=== PATIENT | male | born 1970 | race Caucasian/White ===

== ENCOUNTER 2018-01-31 12:11 | Emergency (ER) | payer BC ==
[2018-01-31 12:20] VITALS: BP 157/108
[2018-01-31] MEDS ORDERED: Acetaminophen/oxyCODONE 325-5 MG Tab PO ONE (12:31)
--- NOTE | 2018-01-31 12:32 | EDM.PDOC ---
ED HPI GENERAL MEDICAL PROBLEM - General Chief Complaint: Lower Extremity Injury/Pain Stated Complaint: RIGHT LEG INJURY Time Seen by Provider: 01/31/18 12:27 Source of Information: Reports: Patient History Limitations: Reports: No Limitations - History of Present Illness INITIAL COMMENTS - FREE TEXT/NARRATIVE: 48-year-old male presents for evaluation and treatment of injury to the right foot and ankle. Occurred about 20 minutes prior to arrival in the ER. Patient was carrying some wood. Reports he stepped off a curb and rolled his right ankle. He is primarily complaining of pain to the right lateral foot. Unable to walk on it. No treatment prior to arrival in the ER. No numbness or tingling. No previous trauma to the right foot. Onset: Today, Sudden Location: Reports: Lower Extremity, Right Right Feet Pain Score (Numeric/FACES): 10 - Related Data Allergies Allergy/AdvReac Type Severity Reaction Status Date / Time No Known Allergies Allergy Verified 12/08/14 10:21 Home Meds: Home Meds PARoxetine [Paxil] 10 mg PO DAILY 12/08/14 [History] Allopurinol [Zyloprim] 300 mg PO DAILY 05/17/16 [History] Rosuvastatin Calcium [Crestor] 40 mg PO DAILY 01/31/18 [History] Past Medical History Cardiovascular History: Reports: High Cholesterol, Hypertension Musculoskeletal History: Reports: Gout - Past Surgical History HEENT Surgical History: Reports: Tonsillectomy Other HEENT Surgeries/Procedures: Septoplasty Musculoskeletal Surgical History: Reports: Arthroscopic Knee Social & Family History - Tobacco Use Smoking Status *Q: Never Smoker - Caffeine Use Caffeine Use: Reports: Coffee, Soda, Tea - Recreational Drug Use Recreational Drug Use: No Review of Systems - Review of Systems Review Of Systems: See Below Musculoskeletal: Reports: Foot Pain (right lateral foot) Skin: Reports: Lumps (right lateral foot) Neurological: Reports: Difficulty Walking (due to right foot pain). Denies: Numbness, Tingling ED EXAM, GENERAL - Physical Exam Exam: See Below Exam Limited By: No Limitations General Appearance: Alert, WD/WN, No Apparent Distress Respiratory/Chest: No Respiratory Distress Cardiovascular: Normal Peripheral Pulses, Regular Rate, Rhythm Peripheral Pulses: 2+: Posterior Tibial (L), Posterior Tibial (R), Dorsalis Pedis (L), Dorsalis Pedis (R) Extremities: Other (tenderness and deformity to the right foto 5th metatarsal; no tenderness to the medial or lateral right malleolus; reports good sensation to liht touch, ableto wiggle toes) Neurological: Alert, Oriented, Normal Cognition Psychiatric: Normal Affect, Normal Mood Skin Exam: Warm, Dry, Normal Color ED TRAUMA EXTREMITY PROCEDURES - Splinting Right Lower Extremity Splint Site: left foot Pre-Procedure NV Status: Normal Post-Procedure NV Status: Normal Splint Material: Other (orthoglass) Splint Design: Posterior Applied & Form Fitted By: Provider, Nurse Provider Post-Splint Application NV Check: NV Status Normal, Good Position Complications: No Course - Vital Signs Last Recorded V/S: Last Vital Signs Temp 97.9 F 01/31/18 12:19 Pulse 82 01/31/18 12:19 Resp 20 01/31/18 12:19 BP 157/108 H 01/31/18 12:19 Pulse Ox 99 01/31/18 12:19 - Orders/Labs/Meds Orders: Active Orders 24 hr Category Date Time Status Ankle Min 3V Rt [CR] Stat Exams 01/31/18 12:31 Taken Foot Comp Min 3V Rt [CR] Stat Exams 01/31/18 12:31 Taken Meds: Medications Discontinued Medications Generic Name Dose Route Start Last Admin Trade Name Freq PRN Reason Stop Dose Admin Oxycodone/Acetaminophen 1 tab 01/31/18 12:31 01/31/18 12:57 Percocet 325-5 Mg PO 01/31/18 12:32 1 tab ONETIME ONE Administration - Radiology Interpretation Free Text/Narrative:: xray of the right foot and ankle shows a fracture of the right proximal 5th metatarsal. - Re-Assessments/Exams Free Text/Narrative Re-Assessment/Exam: 01/31/18 14:18 Patient splinted. Tolerated well. No complications. Discharge instructions as documented. Departure - Departure Time of Disposition: 14:19 Disposition: Home, Self-Care 01 Condition: Fair Clinical Impression: Fracture of 5th metatarsal - Discharge Information Instructions: Metatarsal Fracture Referrals: Chester Olson MD [Primary Care Provider] - Angel Conte MD [Physician] - Forms: ED Department Discharge Additional Instructions: Rx for percocoet 5-325mg tabs #20 1-2 tabs PO every 4-6 hours prn pain you were given medication the other can affect your ability to drive and operate machinery. Do not drive or operate machinery within 12 hours of taking perception narcotic pain medication. [id number] ibuprofen as needed for pain relief. Do not take more than 3200 mg ibuprofen from all sources 1 day. Do not take more than 4grams of tylenol from all sources in one day. Percocet 1-2 tabs PO every 4-6 hours prn pain. Percocet is habit-forming, take as few these as needed to control your pain. Do not drive or operate machinery within 12 hours of taking percocet. Ice the foot, even over the splint. Elevate as much as possible. Nonweightbearing and crutches. Keep splint on at all times. Keep covered with a bag or seran wrap when around water. Follow-up with orthopedics within 7-[address] Conte. Call [phone] to schedule with him. No driving with the splint or on pain medication. Please return to ER if your symptoms change or worsen. - My Orders Last 24 Hours: My Active Orders 01/31/18 12:31 Ankle Min 3V Rt [CR] Stat Foot Comp Min 3V Rt [CR] Stat - Assessment/Plan Last 24 Hours: My Active Orders 01/31/18 12:31 Ankle Min 3V Rt [CR] Stat Foot Comp Min 3V Rt [CR] Stat
--- NOTE | 2018-02-01 12:44 | CR ---
Right ankle: Four views of the right ankle were obtained. Comparison: No prior ankle study. Ankle mortise is symmetric. Fracture is identified within the base of the fifth metatarsal with slight displacement. No additional fracture or other bony abnormality is seen. Impression: 1. Slightly displaced fracture involving the base of the fifth metatarsal. 2. No additional bony abnormality is identified. Diagnostic code #3
--- NOTE | 2018-02-01 12:56 | CR ---
Right foot: Four views of the right foot were obtained. Comparison: No previous foot exam. Slightly displaced fracture involving the base of the right fifth metatarsal. Incidental unfused os navicularis is noted as a normal variant. Minimal bunion deformity is seen. No additional fracture or other bony abnormality is seen. Impression: 1. Slightly displaced fracture within the base of the fifth metatarsal. 2. Other incidental findings. Diagnostic code #3
== END 2018-01-31 14:37 | disposition home or self-care (01) ==
LOC: JD.ED 12:11
DX: S92.351A Displaced fracture of fifth metatarsal bone, right foot, initial encounter for closed fracture (principal); E78.00 Pure hypercholesterolemia, unspecified; I10 Essential (primary) hypertension; Z79.899 Other long term (current) drug therapy
CPT/HCPCS: 29515; 73610; 73630; 99283; A9270

== ENCOUNTER 2019-09-04 17:39 | Emergency (ER) | payer BC ==
[2019-09-04 18:16] VITALS: BP 157/110; PULSE 87
[2019-09-04] MEDS ORDERED: predniSONE 20 MG Tab PO ONE (18:36)
[2019-09-04] MEDS ORDERED: Ketorolac 60 MG/2 ML SDV IM ONE (18:36)
[2019-09-04] MEDS ORDERED: Acetaminophen/HYDROcodone 325-5 MG Tab PO ONE (18:36)
--- NOTE | 2019-09-04 19:11 | EDM.PDOC ---
ED HPI GENERAL MEDICAL PROBLEM - General Chief Complaint: Lower Extremity Injury/Pain Stated Complaint: RT KNEE SWOLLEN Time Seen by Provider: 09/04/19 18:22 Source of Information: Reports: Patient, RN Notes Reviewed - History of Present Illness INITIAL COMMENTS - FREE TEXT/NARRATIVE: 49-year-old male comes in with right knee pain. This started yesterday and is much worse today. 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 Have history of degenerative arthritic problems with the right knee. He states he last had a steroid injection about one year ago done relatively well up until last 2 days. Right Knee Pain Score (Numeric/FACES): 10 - Related Data Allergies Allergy/AdvReac Type Severity Reaction Status Date / Time No Known Allergies Allergy Verified 12/08/14 10:21 Home Meds: Home Meds PARoxetine [Paxil] 10 mg PO DAILY 12/08/14 [History] Allopurinol [Zyloprim] 300 mg PO DAILY 05/17/16 [History] Rosuvastatin Calcium [Crestor] 40 mg PO DAILY 01/31/18 [History] Acetaminophen/HYDROcodone [Driver 325-5 MG] 1 tab PO Q6H PRN #14 tablet 09/04/19 [Rx] Meloxicam 15 mg PO DAILY #20 tablet 09/04/19 [Rx] predniSONE [Prednisone] 50 mg PO DAILY #5 tablet 09/04/19 [Rx] Past Medical History Cardiovascular History: Reports: High Cholesterol, Hypertension Musculoskeletal History: Reports: Gout - Past Surgical History HEENT Surgical History: Reports: Tonsillectomy Other HEENT Surgeries/Procedures: Septoplasty Musculoskeletal Surgical History: Reports: Arthroscopic Knee Other Musculoskeletal Surgeries/Procedures:: needs R knee replacement, gets cortisone injections Social & Family History - Tobacco Use Smoking Status *Q: Never Smoker Second Hand Smoke Exposure: No - Caffeine Use Caffeine Use: Reports: Coffee Review of Systems - Review of Systems Review Of Systems: See Below Constitutional: Denies: Chills, Fever Mouth/Throat: Reports: No Symptoms Respiratory: Denies: Shortness of Breath Cardiovascular: Denies: Chest Pain GI/Abdominal: Denies: Abdominal Pain, Vomiting Musculoskeletal: Reports: Joint Pain (R knee) Skin: Denies: Rash, Erythema Neurological: Reports: No Symptoms ED EXAM, GENERAL - Physical Exam Exam: See Below General Appearance: Alert, Mild Distress Eye Exam: Bilateral Eye: PERRL Head: Atraumatic. No: Facial Swelling Neck: Supple Respiratory/Chest: No Respiratory Distress, Lungs Clear, Normal Breath Sounds Cardiovascular: Regular Rate, Rhythm Extremities: Other (there is tenderness of the R knee anteriorly, no swelling, visible effusion, moderate pain with motion, joint is stable). No: Joint Swelling, Increased Warmth, Redness Course - Vital Signs Last Recorded V/S: Last Vital Signs Temp 98.1 F 09/04/19 18:13 Pulse 87 09/04/19 18:13 Resp 20 09/04/19 18:13 BP 157/110 H 09/04/19 18:13 Pulse Ox 97 09/04/19 18:13 - Orders/Labs/Meds Meds: Medications Discontinued Medications Generic Name Dose Route Start Last Admin Trade Name Freq PRN Reason Stop Dose Admin Hydrocodone Bitart/Acetaminophen 1 tab 09/04/19 18:36 09/04/19 18:49 Driver 325-5 Mg PO 09/04/19 18:37 1 tab ONETIME ONE Administration Ketorolac Tromethamine 60 mg 09/04/19 18:36 09/04/19 18:50 Toradol IM 09/04/19 18:37 60 mg ONETIME ONE Administration Prednisone 40 mg 09/04/19 18:36 09/04/19 18:50 Prednisone PO 09/04/19 18:37 40 mg ONETIME ONE Administration - Re-Assessments/Exams Free Text/Narrative Re-Assessment/Exam: 09/11/19 20:12 X rays were not clinically indicated at time of exam. Departure - Departure Time of Disposition: 19:11 Disposition: Home, Self-Care 01 Condition: Fair Clinical Impression: Knee pain, right - Discharge Information Prescriptions: Acetaminophen/HYDROcodone [Driver 325-5 MG] 1 tab PO Q6H PRN #14 tablet PRN Reason: Pain Meloxicam 15 mg PO DAILY #20 tablet predniSONE [Prednisone] 50 mg PO DAILY #5 tablet Instructions: Knee Pain, Adult Referrals: Chester Olson MD [Primary Care Provider] - Forms: ED Department Discharge Additional Instructions: Rest mean, use knee immobilizer as needed, meloxicam 15 mg daily, and 50 mg every morning for the next 4-5 days, you may take Tylenol in addition up to 3 times daily for extra pain relief or hydrocodone when not working or driving instead of the Tylenol. Prescriptions for these medications have been sent to [facility]. Do not take Tylenol and hydrocodone at the same time. You can also alternate ice and heat as needed. See Dr. Conte in 1-2 weeks, call [phone] for appointment in a.m. Sepsis Event Note - Evaluation Sepsis Screening Result: No Definite Risk - Focused Exam Date Exam was Performed: 09/11/19 Time Exam was Performed: 20:10
== END 2019-09-04 19:25 | disposition home or self-care (01) ==
LOC: JD.ED 17:39
DX: M25.561 Pain in right knee (principal); I10 Essential (primary) hypertension; E78.00 Pure hypercholesterolemia, unspecified; M10.9 Gout, unspecified; Z79.899 Other long term (current) drug therapy
CPT/HCPCS: 96372; 99283; A9270; J1885

== ENCOUNTER 2020-04-14 08:30 | Emergency (ER) | payer BC ==
[2020-04-14 08:39] VITALS: BP 140/103; PULSE 77
--- NOTE | 2020-04-14 09:05 | EDM.PDOC ---
ED HPI GENERAL MEDICAL PROBLEM - General Chief Complaint: Back Pain or Injury Stated Complaint: RIGHT BACK PAIN Time Seen by Provider: 04/14/20 09:00 Source of Information: Reports: Patient History Limitations: Reports: No Limitations - History of Present Illness INITIAL COMMENTS - FREE TEXT/NARRATIVE: 50-year-old male presents to the ED with diffuse mid right low back pain more or less constant for the last 2 weeks. No known injuries. Worsened by twisting movements bending over and sometimes coughing or deep breathing. Has been to the chiropractor with manipulation which feels better for a short period of time. Pain became more intense over the last 48 hours. No relief with sitting in the hot tub last night in fact the jets against the area made it hurt worse. Denies cough or sputum production. He is right-hand dominant. Pain is confined to the right mid back in the distribution of the latissimus dorsi and paraspinal musculature. Onset: Gradual Onset Date: 03/30/20 Duration: Day(s):, Constant, Getting Worse, Intermittent (Intermittently gets worse i.e. some days are worse than others.) Location: Reports: Back (Right mid back) Quality: Reports: Ache, Burning, Throbbing Severity: Moderate Improves with: Reports: Other Worsens with: Reports: Movement (Sometimes even rest no position is comfortable. And by certain movements like twisting turning movements bending over or coughing or deep breathing.) Context: Denies: Activity, Exercise, Lifting, Sick Contact, Trauma, Other Associated Symptoms: Reports: Malaise. Denies: No Other Symptoms, Confusion, Chest Pain, Cough, cough w sputum, Diaphoresis, Fever/Chills, Headaches, Loss of Appetite, Nausea/Vomiting, Rash, Seizure, Shortness of Breath, Syncope, Weakness Treatments [employer]: Reports: Acetaminophen, NSAIDS Right Back Pain Score (Numeric/FACES): 1 - Related Data Allergies Allergy/AdvReac Type Severity Reaction Status Date / Time No Known Allergies Allergy Verified 04/14/20 08:39 Home Meds: Home Meds PARoxetine [Paxil] 10 mg PO DAILY 12/08/14 [History] Allopurinol [Zyloprim] 300 mg PO DAILY PRN 05/17/16 [History] Rosuvastatin Calcium [Crestor] 40 mg PO DAILY 01/31/18 [History] Cyclobenzaprine [Flexeril] 10 mg PO BEDTIME #6 tab 04/14/20 [Rx] Diclofenac Sodium [Voltaren] 75 mg PO BIDMEALS #16 tab.cr 04/14/20 [Rx] Hydrocodone/Acetaminophen [[place] 5-325 Tablet] 1 each PO Q6H PRN #14 tablet 04/14/20 [Rx] Levothyroxine [Synthroid] 100 mcg PO DAILY 04/14/20 [History] allopurinoL [Zyloprim] 100 mg PO DAILY 04/14/20 [History] predniSONE [Prednisone] 20 mg PO BID #12 tablet 04/14/20 [Rx] Past Medical History Cardiovascular History: Reports: High Cholesterol, Hypertension Musculoskeletal History: Reports: Gout Endocrine/Metabolic History: Reports: Hypothyroidism (Levothyroxine.) - Infectious Disease History Infectious Disease History: Reports: None - Past Surgical History HEENT Surgical History: Reports: Tonsillectomy Other HEENT Surgeries/Procedures: Septoplasty Musculoskeletal Surgical History: Reports: Arthroscopic Knee Other Musculoskeletal Surgeries/Procedures:: needs R knee replacement, gets cortisone injections Social & Family History - Tobacco Use Smoking Status *Q: Never Smoker Second Hand Smoke Exposure: No - Caffeine Use Caffeine Use: Reports: Coffee - Recreational Drug Use Recreational Drug Use: No - Living Situation & Occupation Living situation: Reports: Occupation: Employed ED ROS GENERAL - Review of Systems Review Of Systems: See Below Constitutional: Reports: Fatigue. Denies: Fever, Chills HEENT: Reports: Glasses Respiratory: Reports: No Symptoms Cardiovascular: Reports: No Symptoms, Other (Known high cholesterol.) Endocrine: Reports: Fatigue GI/Abdominal: Reports: No Symptoms : Reports: No Symptoms Musculoskeletal: Reports: Back Pain (Right mid low back pain which is constant and worsened by certain movements.) Skin: Reports: No Symptoms Neurological: Reports: No Symptoms Psychiatric: Reports: No Symptoms Hematologic/Lymphatic: Reports: No Symptoms Immunologic: Reports: No Symptoms ED EXAM, UPPER BACK/NECK PAIN - Physical Exam Exam: See Below Exam Limited By: No Limitations General Appearance: Alert, WD/WN, Mild Distress, Other (Temperature is 36.1 with a heart rate of 77. Respiratory to 16 with O2 sats of 95% room air BP mildly elevated 1 4103.) Eye Exam: Bilateral Eye: Normal Fundi, PERRL Cardiovascular/Respiratory: Regular Rate, Rhythm, No M/R/G, Normal Peripheral Pulses, No JVD, No Respiratory Distress GI/Abdominal: Normal Bowel Sounds, Soft, Non-Tender, No Organomegaly, No Abnor mal Bruit, No Mass, Pelvis Stable Back Exam: Decreased Range of Motion, Muscle Spasm (Still spasm from thoracic 6 to lumbar 1 right side.), Paraspinal Tenderness (Marked paraspinal muscle tenderness overlying right rib heads from 03/04/2010.), Other (Point of maximal tenderness appears to be rib head #10.) Extremities: Normal Inspection, Normal Range of Motion, Non-Tender Neurologic: No Motor/Sensory Deficits, Alert, Normal Mood/Affect, Oriented x 3 Course - Vital Signs Last Recorded V/S: Last Vital Signs Temp 36.1 C 04/14/20 08:37 Pulse 77 04/14/20 08:37 Resp 16 04/14/20 08:37 BP 140/103 H 04/14/20 08:37 Pulse Ox 95 04/14/20 08:37 - Radiology Interpretation Free Text/Narrative:: 50-year-old male presents to the ED for evaluation of 2-week history of right low back pain. Pain is actually in his mid thoracic lower thoracic area. Paraspinal muscle spasm from thoracic 6 to lumbar 1 evident. Point of maximal tenderness appears to be rib bed #10. Certainly has marked overlying paraspinal muscle spasm. Plan CT thoracic spine to be done since he is been to chiropractor with manipulation with only minimal improvement. Pain seems to be gradually worsening. He has no history of any cancer. Lungs are clear to auscultation percussion. - Re-Assessments/Exams Free Text/Narrative Re-Assessment/Exam: 04/14/20 09:55 CT of the thoracic spine is been completed. So scattered disc space narrowing as well as scattered endplate osteophytes throughout the spine. Vertebral body heights are maintained. No fractures are identified within the thoracic spine no bony central or bony neuroforaminal stenosis is appreciated. Slight scoliosis is noted. No abnormal subluxation is appreciated no discrete disc herniation is noted. 04/14/20 10:12 I discussed the findings with the patient. Clinically I believe he has a rib head subluxation at thoracic 9 or 10 level on the right side because his current muscle spasm and pain. I would suggest follow-up with a chiropractor again next week to have these rib heads adjusted. In the meantime I will place him on anti-inflammatory Voltaren 75 mg twice daily for the next 8 days with food. Prednisone 20 mg twice daily with breakfast and supper for 6 days. Flexeril 10 mg at bedtime only x6 tablets and Percocet tablets 5/325 mg 1 tablet every 6 hours as needed for pain relief x14 tablets. Return to medical care if not markedly improved after rib head adjustment by chiropractor Departure - Departure Time of Disposition: 10:03 Disposition: Home, Self-Care 01 Condition: Fair Clinical Impression: Thoracic back pain Qualifiers: Chronicity: acute Back pain laterality: right Qualified Code(s): M54.6 - Pain in thoracic spine - Discharge Information *PRESCRIPTION DRUG MONITORING PROGRAM REVIEWED*: Not Applicable *COPY OF PRESCRIPTION DRUG MONITORING REPORT IN PATIENT ACMDEN: Not Applicable Prescriptions: Cyclobenzaprine [Flexeril] 10 mg PO BEDTIME #6 tab Hydrocodone/Acetaminophen [[place] 5-325 Tablet] 1 each PO Q6H PRN #14 tablet PRN Reason: back pain predniSONE [Prednisone] 20 mg PO BID #12 tablet Diclofenac Sodium [Voltaren] 75 mg PO BIDMEALS #16 tab.cr Referrals: Chester Olson MD [Primary Care Provider] - Forms: ED Department Discharge Additional Instructions: Evaluation in the emergency room today in regards to diffuse right sided back pain for the better part of 2 weeks. Gradually seems to be worsening. Examination reveals significant. Paraspinal muscle spasm on the right side from mid upper back at thoracic 6 down to the lumbar 1 level. Maximal point of tenderness appears to be rib heads 9 and 10 on the right side. There is no paraspinal muscle spasm on the left side. A CT of your thoracic spine was done due to gradually worsening pain over the last 2 weeks to rule out anything sinister. There is some mild associated degenerative disc disease and arthritic changes throughout the thoracic spine but nothing that is impinging a nerve root or invading the bone to cause pain. I suspect there is a rib head subluxation at right side thoracic 9 or 10 level. Suggest treatment with Deltasone 20 mg twice daily with breakfast and supper for 6 days. Take 1 when you get 1 this morning and in the next 1 bedtime with a little food in your stomach. Anti- inflammatory is to be Voltaren 75 mg twice daily usually again with breakfast and supper meals for the next 8 days to relieve pain and inflammation. Pain pill is Percocet 5/325 mg to be taken 1 tablet every 6 hours as necessary for pain relief. Flexeril 10 mg at bedtime only for muscle spasm relief and to help sleep. Suggest follow-up with chiropractor early next week to have rib head adjusted on the right mid lower back. Expect marked improvement after rib head readjustments usually within 48 hours. Sepsis Event Note (ED) - Evaluation Sepsis Screening Result: No Definite Risk - Focused Exam Vital Signs: Vital Signs Temp Pulse Resp BP Pulse Ox 04/14/20 08:37 36.1 C 77 16 140/103 H 95
--- NOTE | 2020-04-14 09:33 | CT ---
CT thoracic spine Technique: Multiple axial sections through the thoracic spine were obtained. Reconstructed coronal and sagittal images were reviewed. Comparison: No prior thoracic spine imaging. Findings: Scattered disc space narrowing is seen as well as scattered endplate osteophytes. Vertebral body heights are maintained. No fracture is seen within the thoracic spine. No bony central or bony neural foraminal stenosis is appreciated. Slight scoliosis is noted. No abnormal subluxation is appreciated. No discrete disc herniation is appreciated. Impression: 1. Degenerative change as noted above. Mild scoliosis is present. 2. Nothing acute is appreciated. Note: Please correlate if patient's symptoms warrant further evaluation by MRI. Diagnostic code #2 This report was dictated in MDT
== END 2020-04-14 10:25 | disposition home or self-care (01) ==
LOC: JD.ED 08:30
DX: M62.830 Muscle spasm of back (principal); I10 Essential (primary) hypertension; E78.00 Pure hypercholesterolemia, unspecified; E03.9 Hypothyroidism, unspecified; Z79.899 Other long term (current) drug therapy
CPT/HCPCS: 72128; 72128-26; 99283; 99283-25

== ENCOUNTER 2020-11-01 15:18 | Emergency (ER) | payer BC ==
[2020-11-01 15:27] VITALS: BP 154/110; PULSE 123
[2020-11-01] MEDS ORDERED: Diphtheria,Pertussis(Acell),Tetanus Vaccine 0.5 ML Syringe IM ONE (15:33)
[2020-11-01] MEDS ORDERED: Lidocaine 1% 10 ML MDV INJECT ONE (15:35)
[2020-11-01] MEDS ORDERED: Amoxicillin/Clavulanate K 875-125 MG Tab PO ONE (15:55)
--- NOTE | 2020-11-01 16:33 | EDM.PDOC ---
ED HPI GENERAL MEDICAL PROBLEM - General Chief Complaint: Bite:Animal, Insect Stated Complaint: DOG BITE LEFT FOOT Time Seen by Provider: 11/01/20 15:25 Source of Information: Reports: Patient, RN Notes Reviewed History Limitations: Reports: No Limitations ( ) - History of Present Illness INITIAL COMMENTS - FREE TEXT/NARRATIVE: Patient is a 50-year-old male presenting to the emergency department with complaints of a dog bite to his left foot. He states that he was working with a saw outside when the homeowners dog bit him in the foot. Patient reports the dog is up-to-date with his vaccinations. He is unsure when his last tetanus vaccination was. He denies any numbness or tingling in the foot. He has full strength and range of motion of the distal extremities. left foot Pain Score (Numeric/FACES): 8 - Related Data Allergies Allergy/AdvReac Type Severity Reaction Status Date / Time No Known Allergies Allergy Verified 11/01/20 15:27 Home Meds: Home Meds PARoxetine [Paxil] 10 mg PO DAILY 12/08/14 [History] Allopurinol [Zyloprim] 300 mg PO DAILY PRN 05/17/16 [History] Rosuvastatin Calcium [Crestor] 40 mg PO DAILY 01/31/18 [History] Cyclobenzaprine [Flexeril] 10 mg PO BEDTIME #6 tab 04/14/20 [Rx] Diclofenac Sodium [Voltaren] 75 mg PO BIDMEALS #16 tab.cr 04/14/20 [Rx] Hydrocodone/Acetaminophen [[place] 5-325 Tablet] 1 each PO Q6H PRN #14 tablet 04/14/20 [Rx] Levothyroxine [Synthroid] 100 mcg PO DAILY 04/14/20 [History] allopurinoL [Zyloprim] 100 mg PO DAILY 04/14/20 [History] predniSONE [Prednisone] 20 mg PO BID #12 tablet 04/14/20 [Rx] Amoxicillin/Clavulanate K [Augmentin 875-125 MG] 1 tab PO BID 5 Days #9 tablet 11/01/20 [Rx] Past Medical History Cardiovascular History: Reports: High Cholesterol, Hypertension Musculoskeletal History: Reports: Gout Endocrine/Metabolic History: Reports: Hypothyroidism - Infectious Disease History Infectious Disease History: Reports: None - Past Surgical History HEENT Surgical History: Reports: Tonsillectomy Other HEENT Surgeries/Procedures: Septoplasty Musculoskeletal Surgical History: Reports: Arthroscopic Knee Other Musculoskeletal Surgeries/Procedures:: needs R knee replacement, gets cortisone injections Social & Family History - Tobacco Use Tobacco Use Status *Q: Never Tobacco User - Caffeine Use Caffeine Use: Reports: Coffee - Recreational Drug Use Recreational Drug Use: No - Living Situation & Occupation Living situation: Reports: Occupation: Employed ED ROS GENERAL - Review of Systems Review Of Systems: Comprehensive ROS is negative, except as noted in HPI. ED EXAM, ANIMAL BITE - Physical Exam Exam: See Below Exam Limited By: No Limitations General Appearance: Alert, WD/WN, No Apparent Distress Respiratory/Chest: No Respiratory Distress, Lungs Clear, Normal Breath Sounds, No Accessory Muscle Use, Chest Non-Tender Cardiovascular: Normal Peripheral Pulses, Regular Rate, Rhythm, No Edema, No Gallop, No JVD, No Murmur, No Rub Extremities: Other (2 cm laceration to the dorsal aspect of the left foot. Patient has full range of motion and strength in flexion and extension of his metatarsals.) Neurological: Alert, Oriented, CN II-XII Intact, Normal Cognition, Normal Gait, Normal Reflexes, No Motor/Sensory Deficits Psychiatric: Normal Affect, Normal Mood Skin Exam: Warm/Dry, DRY, I, Normal Color, NR ED ANIMAL BITE PROCEDURES - Laceration/Wound Repair Left Dorsal Foot Lac/Wound Length In cm: 2 Appearance: Subcutaneous Distal NVT: Neuro & Vascular Intact, No Tendon Injury Anesthetic Type: Local Local Anesthesia - Lidocaine (Xylocaine): 1% Plain Local Anesthetic Volume: 2cc Skin Prep: Chlorhexidine (Hibiciens), Providone-Iodine (Betadine), Saline Saline Irrigation (cc's): 1,000 Exploration/Debridement/Repair: Wound Explored, No Foreign Material Found Closed With: Sutures Suture Size: 4-0 # of Sutures: 3 Suture Type: Nylon Sterile Dressing Applied: Nurse Tetanus Status Addressed: Yes Complications: No Course - Vital Signs Last Recorded V/S: Last Vital Signs Temp 96.8 F L 11/01/20 15:24 Pulse 123 H 11/01/20 15:24 Resp 18 11/01/20 15:24 BP 154/110 H 11/01/20 15:24 Pulse Ox 94 L 11/01/20 15:24 - Orders/Labs/Meds Orders: Active Orders 24 hr Category Date Time Status Vaccines to be Administered [RC] PER UNIT ROUTINE Care 11/01/20 15:34 Active Meds: Medications Discontinued Medications Generic Name Dose Route Start Last Admin Trade Name Ainsley PRN Reason Stop Dose Admin Amoxicillin/Clavulanate Potassium 1 tab 11/01/20 21:00 Amoxicillin/Clavulanate K 875-125 Mg Tab PO Q12HR HERNESTO Amoxicillin/Clavulanate Potassium 1 tab 11/01/20 15:55 11/01/20 16:11 Amoxicillin/Clavulanate K 875-125 Mg Tab PO 11/01/20 15:56 1 tab ONETIME ONE Administration Diphtheria/Tetanus/Acell Pertussis 0.5 ml 11/01/20 15:33 11/01/20 16:11 Diphtheria,Pertussis(Acell),Tetanus Vaccine 0.5 Ml Syringe IM 11/01/20 15:34 0.5 ml .ONCE ONE Administration Lidocaine HCl 10 ml 11/01/20 15:35 11/01/20 16:12 Lidocaine 1% 10 Ml Mdv INJECT 11/01/20 15:36 10 ml ONETIME ONE Administration - Re-Assessments/Exams Free Text/Narrative Re-Assessment/Exam: Patient is a 50-year-old male presenting to the emergency department complaints of a laceration to the dorsal aspect of his left foot after being bit by a dog. On exam, he has a 2 cm gaping laceration to the dorsal aspect of the foot which will require closure. See procedure notes for closure. Patient will be started on a 5-day course of Augmentin for infection prophylaxis. He was also updated on his tetanus vaccination. The dog who bit him is up-to-date on his vaccinations. Discharge instructions as documented. Departure - Departure Time of Disposition: 16:31 Disposition: Home, Self-Care 01 Condition: Good Clinical Impression: Laceration Dog bite of foot Qualifiers: Encounter type: initial encounter Laterality: left Qualified Code(s): S91.352A - Open bite, left foot, initial encounter; W54.0XXA - Bitten by dog, initial encounter - Discharge Information Prescriptions: Amoxicillin/Clavulanate K [Augmentin 875-125 MG] 1 tab PO BID 5 Days #9 tablet Referrals: Chester Olson MD [Primary Care Provider] - Additional Instructions: You were seen in the emergency department today for a laceration to your left foot after being bit by a dog. The wound was cleansed and closed with 3 loose sutures. These should stay intact for 10 days. After that time they may be removed in the clinic by a nurse. Keep the wound clean and dry. Wash with normal soap and water twice daily. Do not submerge the wound in water. You have been started on Augmentin for infection prevention. First dose of this was given in ER. Take the remaining doses as prescribed. Watch for signs of infection including increased redness, swelling, or purulent drainage. If these should occur, you should be seen either in the clinic or in the emergency department as antibiotic treatment may be needed. Return to the ER as needed. Sepsis Event Note (ED) - Evaluation Sepsis Screening Result: No Definite Risk - Focused Exam Vital Signs: Vital Signs Temp Pulse Resp BP Pulse Ox 11/01/20 15:24 96.8 F L 123 H 18 154/110 H 94 L - My Orders Last 24 Hours: My Active Orders 11/01/20 15:34 Vaccines to be Administered [RC] PER UNIT ROUTINE - Assessment/Plan Last 24 Hours: My Active Orders 11/01/20 15:34 Vaccines to be Administered [RC] PER UNIT ROUTINE
[2020-11-01] MEDS ORDERED: Amoxicillin/Clavulanate K 875-125 MG Tab PO SCH (21:00)
== END 2020-11-01 16:48 | disposition home or self-care (01) ==
LOC: JD.ED 15:18
DX: S91.352A Open bite, left foot, initial encounter (principal); Z23 Encounter for immunization; W54.0XXA Bitten by dog, initial encounter
CPT/HCPCS: 12001; 90471; 90715; 99283; A9270

== ENCOUNTER 2023-01-30 13:41 | Emergency (ER) | payer BC ==
[2023-01-30 13:51] VITALS: PULSE 98
[2023-01-30] MEDS ORDERED: Tenecteplase 50 MG Kit ONE (14:06)
[2023-01-30] MEDS ORDERED: Tenecteplase 50 MG Kit IV ONE (14:25)
[2023-01-30 14:27] LABS: BASOPHILS ABSOLUTE AUTO 0.02 K/mm3 (0.01-0.08); BASOPHILS PERCENT AUTO 0.3 % (0.1-1.2); EOSINOPHILS ABSOLUTE AUTO 0.07 K/mm3 (0.04-0.54); HEMATOCRIT 43.6 % (40.1-51.0); IMMATURE GRAN ABSOLUTE AUTO 0.03 K/mm3 (0.00-0.10); IMMATURE GRAN PERCENT AUTO 0.4 % (<=1.0); LYMPHOCYTES ABSOLUTE AUTO 1.23 K/mm3 (1.32-3.57); LYMPHOCYTES PERCENT AUTO 18.2 % (21.8-53.1); MEAN CORPUSCULAR HEMOGLOBIN 32.5 pg (25.7-32.2); MEAN CORPUSCULAR HGB CONC 34.4 g/dl (32.2-35.5); MEAN CORPUSCULAR VOLUME 94.6 fl (79.0-92.2); MEAN PLATELET VOLUME 9.6 fl (9.4-12.3); MONOCYTES ABSOLUTE AUTO 0.52 K/mm3 (0.30-0.82); MONOCYTES PERCENT AUTO 7.7 % (5.3-12.2); NEUTROPHILS ABSOLUTE AUTO 4.87 K/mm3 (1.78-5.38); NEUTROPHILS PERCENT AUTO 72.4 % (34.0-67.9); PLATELET COUNT,PLT 241 K/mm3 (163-337); RED BLOOD CELL COUNT 4.61 M/mm3 (4.63-6.08); WHITE BLOOD CELL COUNT,WBC 6.74 K/mm3 (4.23-9.07)
[2023-01-30] MEDS ORDERED: niCARdipine HCl 25 MG in Sodium Chloride 0.9% 250 ML IV SCH (14:30)
[2023-01-30 14:31] VITALS: BP 169/103
[2023-01-30 14:33] LABS: PROTHROMBIN TIME 10.7 SECONDS (9.7-12.0)
[2023-01-30 14:35] LABS: PTT,PARTIAL THROMBOPLSTIN TIME 24.9 SECONDS (21.7-31.4)
[2023-01-30 14:41] LABS: A/G RATIO 1.2 (1-2); ALBUMIN 4.4 g/dl (3.4-5.0); ANION GAP 13.6 (5-15); BILIRUBIN TOTAL 0.9 mg/dL (0.2-1.0); BUN/CREATININE RATIO 11.8 (14-18); CREATININE 1.1 mg/dL (0.7-1.3); EST CRCL DRUG DOSING (CG) 74.28 mL/min; POTASSIUM,K 3.6 mEq/L (3.5-5.1); PROTEIN TOTAL,TP 8.1 g/dl (6.4-8.2)
[2023-01-30 15:00] LABS: CALCIUM 9.6 mg/dL (8.5-10.1)
== END 2023-01-30 15:37 ==
LOC: JD.ED 13:41
DX: I63.9 Cerebral infarction, unspecified (principal); I10 Essential (primary) hypertension; E78.00 Pure hypercholesterolemia, unspecified; E03.9 Hypothyroidism, unspecified; Z79.899 Other long term (current) drug therapy
CPT/HCPCS: 36415; 37195; 70450; 80053; 82947; 84484; 85025; 85610; 85730; 96365; 99285; J3101; J7050; 93010; J3490

== ENCOUNTER 2023-05-05 21:54 | Emergency (ER) | payer BC ==
[2023-05-05] MEDS ORDERED: EPINEPHrine 1 MG/ML SDV ONE (21:59)
[2023-05-05] MEDS ORDERED: Albuterol/Ipratropium 3.0-0.5 MG/3 ML Neb Soln ONE (22:01)
[2023-05-05] MEDS ORDERED: methylPREDNISolone Sodium Succinate 125 MG/2 ML SDV ONE (22:02)
[2023-05-05] MEDS ORDERED: Albuterol/Ipratropium 3.0-0.5 MG/3 ML Neb Soln NEB ONE (22:03)
[2023-05-05] MEDS ORDERED: methylPREDNISolone Sodium Succinate 125 MG/2 ML SDV IVPUSH ONE (22:03)
[2023-05-05] MEDS ORDERED: Sodium Chloride 0.9% 10 ML Syringe FLUSH PRN (22:03)
[2023-05-05] MEDS ORDERED: diphenhydrAMINE 50 MG/ML SDV IVPUSH ONE (22:04)
[2023-05-05] MEDS ORDERED: Famotidine 20 MG/2 ML SDV IVPUSH ONE (22:07)
[2023-05-05] MEDS ORDERED: Racepinephrine 2.25% 0.5 ML Neb Soln NEB ONE (22:11)
[2023-05-05] MEDS ORDERED: Sodium Chloride 0.9% Inhalation Soln 3 ML Neb INH PRN (22:11)
[2023-05-06 02:50] VITALS: BP 115/76; PULSE 85
== END 2023-05-06 02:44 | disposition home or self-care (01) ==
LOC: JD.ED 21:54
DX: T78.2XXA Anaphylactic shock, unspecified, initial encounter (principal); T78.40XA Allergy, unspecified, initial encounter; E78.00 Pure hypercholesterolemia, unspecified; I10 Essential (primary) hypertension; E03.9 Hypothyroidism, unspecified; Z79.899 Other long term (current) drug therapy
CPT/HCPCS: 94640; 96372; 96374; 96375; 99284; A9270; J0171; J1200; J2930; J3490; J7620-GY

== ENCOUNTER 2023-06-15 06:10 | Day surgery (SDC) | payer BC ==
[~2023-06-15 06:10] MED LIST: Lactated Ringers 1,000 ML IV SCH; Sodium Chloride 0.9% 10 ML Syringe FLUSH PRN; Sodium Chloride 0.9% 10 ML Syringe FLUSH SCH
[2023-06-15] MEDS ORDERED: oxyCODONE ER 10 MG TAB.ER PO SCH (06:15)
[2023-06-15] MEDS ORDERED: Pregabalin 25 MG Cap PO SCH (06:15)
[2023-06-15] MEDS ORDERED: Acetaminophen 325 MG Tab PO SCH (06:15)
[2023-06-15] MEDS ORDERED: Propofol 200 MG/20 ML SDV ONE ×3 (06:19→07:47)
[2023-06-15] MEDS ORDERED: Midazolam 1 MG/ML 2 ML SDV ONE (06:19)
[2023-06-15] MEDS ORDERED: fentaNYL 100 MCG/2 ML SDV IVPUSH PRN (06:44)
[2023-06-15] MEDS ORDERED: Ondansetron 4 MG/2 ML SDV IVPUSH PRN (06:44)
[2023-06-15] MEDS ORDERED: HYDROmorphone 0.5 MG/0.5 ML Syringe IVPUSH PRN (06:44)
[2023-06-15] MEDS ORDERED: Ropivacaine 0.5% 5 MG/ML 30 ML SDV ONE (07:30)
[2023-06-15] MEDS ORDERED: Ondansetron 4 MG/2 ML SDV ONE (07:34)
[2023-06-15] MEDS ORDERED: ceFAZolin 2 GM Vial ONE (07:34)
[2023-06-15] MEDS ORDERED: Dexamethasone 4 MG/ML 5 ML MDV ONE (07:34)
[2023-06-15] MEDS ORDERED: Phenylephrine 1% 10 MG/ML SDV ONE (07:36)
[2023-06-15] MEDS: Morphine 8 MG, EPINEPHrine 0.3 MG, Cefuroxime 750 MG, Ketorolac 30 MG, Sodium Chloride ... PRN ×10 (07:42→08:03)
[2023-06-15] MEDS: Tranexamic Acid 1,000 MG/10 ML Vial ONE ×2 (07:42→08:10)
[2023-06-15] MEDS: Vancomycin 1 GM SDV ONE ×2 (07:42→08:10)
[2023-06-15] MEDS ORDERED: Lactated Ringers 1,000 ML IV ONE (08:15)
[2023-06-15] MEDS ORDERED: oxyCODONE 5 MG Tab PO ONE (09:20)
[2023-06-15 13:06] VITALS: BP 130/78; PULSE 74
== END 2023-06-15 12:45 | disposition home or self-care (01) ==
LOC: JD.SDS 06:10
PROVIDERS: ATTEND Orthopaedic Surgery
DX: M17.11 Unilateral primary osteoarthritis, right knee (principal); I10 Essential (primary) hypertension; E03.9 Hypothyroidism, unspecified; F41.9 Anxiety disorder, unspecified; E78.00 Pure hypercholesterolemia, unspecified; K21.9 Gastro-esophageal reflux disease without esophagitis; Z87.891 Personal history of nicotine dependence; Z79.890 Hormone replacement therapy; Z79.82 Long term (current) use of aspirin; Z79.899 Other long term (current) drug therapy; Z91.013 Allergy to seafood
CPT/HCPCS: 0055T; 27447; 64447; 73560; 97110; 97116; 97161; A9270; C1713; C1776; J0171; J0690; J0697; J1100; J1170; J1885; J2250; J2270; J2371; J2405; J2704; J2795; J3370; J7030; J7120; 01402; J3490

== ENCOUNTER 2024-05-29 00:56 | Emergency (ER) | payer BC ==
[2024-05-29] MEDS: EPINEPHrine 1 MG/ML SDV IM ONE (01:04)
[2024-05-29] MEDS: methylPREDNISolone Sodium Succinate 125 MG/2 ML SDV IVPUSH ONE (01:05)
[2024-05-29] MEDS: Midazolam 1 MG/ML 2 ML SDV IVPUSH ONE (01:06)
[2024-05-29] MEDS: Sodium Chloride 0.9% 1,000 ML IV SCH (01:07)
[2024-05-29] MEDS: diphenhydrAMINE 50 MG/ML SDV IV ONE (01:10)
[2024-05-29 01:19] LABS: BASOPHILS ABSOLUTE AUTO 0.1 K/mm3 (0.0-0.2); BASOPHILS PERCENT AUTO 0.6 % (0.0-1.0); EOSINOPHILS ABSOLUTE AUTO 0.4 K/mm3 (0.0-0.4); EOSINOPHILS PERCENT AUTO 3.2 % (0.0-6.0); HEMATOCRIT 41.3 % (42.0-52.0); HEMOGLOBIN 14.6 gm/dl (14.0-18.0); IMMATURE GRAN ABSOLUTE AUTO 0.03 K/mm3 (0.00-0.05); IMMATURE GRAN PERCENT AUTO 0.3 % (0.0-0.4); LYMPHOCYTES ABSOLUTE AUTO 4.7 K/mm3 (1.0-4.8); LYMPHOCYTES PERCENT AUTO 42.3 % (24.0-44.0); MEAN CORPUSCULAR HEMOGLOBIN 32.6 pg (28.0-32.0); MEAN CORPUSCULAR HGB CONC 35.4 g/dl (32.0-36.0); MEAN CORPUSCULAR VOLUME 92.2 fl (83.0-99.0); MEAN PLATELET VOLUME 9.3 fl (9.4-12.4); MONOCYTES ABSOLUTE AUTO 1.3 K/mm3 (0.0-0.8); NEUTROPHILS ABSOLUTE AUTO 4.6 K/mm3 (1.8-7.7); NEUTROPHILS PERCENT AUTO 41.6 % (41.0-71.0); PLATELET COUNT,PLT 250 K/mm3 (150-400); RED BLOOD CELL COUNT 4.48 M/mm3 (4.52-5.90); WHITE BLOOD CELL COUNT,WBC 11.12 K/mm3 (3.9-11.3)
[2024-05-29] MEDS: EPINEPHrine 1 MG/ML SDV ONE (01:29)
[2024-05-29] MEDS: Albuterol 0.083% 2.5 MG/3 ML Neb Soln NEB ONE (01:30)
[2024-05-29] MEDS: Albuterol 0.083% 2.5 MG/3 ML Neb Soln ONE (01:31)
[2024-05-29] MEDS: diphenhydrAMINE 50 MG/ML SDV ONE (01:34)
[2024-05-29] MEDS: methylPREDNISolone Sodium Succinate 125 MG/2 ML SDV ONE (01:35)
[2024-05-29] MEDS: Sodium Chloride 0.9% 10 ML Syringe FLUSH PRN (01:36)
[2024-05-29 01:49] LABS: A/G RATIO 1.4 (1-2); ALBUMIN 4.2 g/dl (3.4-5.0); ANION GAP 16.6 (5-15); BILIRUBIN TOTAL 0.5 mg/dL (0.2-1.0); BUN/CREATININE RATIO 14.4 (14-18); CALCIUM 8.8 mg/dL (8.5-10.1); CREATININE 0.9 mg/dL (0.7-1.3); EST CRCL DRUG DOSING (CG) 89.77 mL/min; ETHANOL BLOOD MEDICAL 0.2 gm% (0.00); POTASSIUM,K 2.6 mEq/L (3.5-5.1); PROTEIN TOTAL,TP 7.3 g/dl (6.4-8.2)
[2024-05-29] MEDS: Midazolam 1 MG/ML 2 ML SDV ONE (02:00)
[2024-05-29] MEDS: Potassium Chloride 20 MEQ Tab.ER PO ONE (02:07)
[2024-05-29] MEDS: Potassium Chloride 10 MEQ in Premix Bag 1 BAG IV ONE (02:07)
[2024-05-29] MEDS: Sodium Chloride 0.9% 500 ML IV SCH (02:08)
[2024-05-29] MEDS: Potassium Chloride 10 MEQ in Premix Bag 1 BAG IV SCH (03:32)
[2024-05-29 07:40] VITALS: BP 132/78; PULSE 94
== END 2024-05-29 06:38 | disposition home or self-care (01) ==
LOC: JD.ED 00:56
DX: T78.2XXA Anaphylactic shock, unspecified, initial encounter (principal); E87.6 Hypokalemia; I10 Essential (primary) hypertension; K21.9 Gastro-esophageal reflux disease without esophagitis; Z79.82 Long term (current) use of aspirin; Z79.899 Other long term (current) drug therapy; Z91.013 Allergy to seafood
CPT/HCPCS: 36415; 80053; 80307; 83735; 85025; 93005; 94640; 96361; 96365; 96366; 96372; 96375; 99285; A9270; J0171; J1200; J2250; J2919; J3480; J3490; J7030; J7040; 93010; 99284; J7620-GY

== ENCOUNTER 2024-11-15 02:51 | Emergency (ER) | payer BC ==
[2024-11-15] MEDS ORDERED: Sodium Chloride 0.9% 10 ML Syringe FLUSH PRN (03:06)
[2024-11-15] MEDS: Ketorolac 15 MG/ML SDV IVPUSH ONE (03:34)
[2024-11-15] MEDS: Sodium Chloride 0.9% 1,000 ML IV ONE (03:36)
[2024-11-15] MEDS: Iopamidol 612 MG/ML 100 ML Bottle IVPUSH ONE (03:49)
[2024-11-15] MEDS ORDERED: HYDROmorphone 1 MG/ML Syringe IVPUSH ONE (03:53)
[2024-11-15 03:55] LABS: BASOPHILS PERCENT AUTO 0.5 % (0.0-1.0); EOSINOPHILS ABSOLUTE AUTO 0.2 K/mm3 (0.0-0.4); EOSINOPHILS PERCENT AUTO 2.1 % (0.0-6.0); HEMATOCRIT 45.1 % (42.0-52.0); HEMOGLOBIN 15.5 gm/dl (14.0-18.0); IMMATURE GRAN ABSOLUTE AUTO 0.02 K/mm3 (0.00-0.05); IMMATURE GRAN PERCENT AUTO 0.2 % (0.0-0.4); LYMPHOCYTES ABSOLUTE AUTO 1.3 K/mm3 (1.0-4.8); LYMPHOCYTES PERCENT AUTO 15.6 % (24.0-44.0); MEAN CORPUSCULAR HEMOGLOBIN 31.4 pg (28.0-32.0); MEAN CORPUSCULAR HGB CONC 34.4 g/dl (32.0-36.0); MEAN CORPUSCULAR VOLUME 91.5 fl (83.0-99.0); MEAN PLATELET VOLUME 9.5 fl (9.4-12.4); MONOCYTES ABSOLUTE AUTO 0.4 K/mm3 (0.0-0.8); MONOCYTES PERCENT AUTO 5.4 % (0.0-8.0); NEUTROPHILS ABSOLUTE AUTO 6.2 K/mm3 (1.8-7.7); NEUTROPHILS PERCENT AUTO 76.2 % (41.0-71.0); PLATELET COUNT,PLT 218 K/mm3 (150-400); RED BLOOD CELL COUNT 4.93 M/mm3 (4.52-5.90); WHITE BLOOD CELL COUNT,WBC 8.08 K/mm3 (3.9-11.3)
[2024-11-15 04:38] LABS: ALBUMIN 4.1 g/dl (3.4-5.0); BILIRUBIN TOTAL 0.5 mg/dL (0.2-1.0); BUN/CREATININE RATIO 17.5 (14-18); CALCIUM 9.1 mg/dL (8.5-10.1); CREATININE 0.8 mg/dL (0.7-1.3); EST CRCL DRUG DOSING (CG) 97.47 mL/min; PROTEIN TOTAL,TP 8.2 g/dl (6.4-8.2)
[2024-11-15 05:25] LABS: APPEARANCE,URINE CLEAR (Clear); BILIRUBIN,URINE NEGATIVE (Negative); COLOR,URINE YELLOW (Yellow); GLUCOSE,URINE NEGATIVE (Negative); KETONES,URINE NEGATIVE (Negative); LEUKOCYTE ESTERASE,URINE NEGATIVE (Negative); NITRITE,URINE NEGATIVE (Negative); OCCULT BLOOD,URINE NEGATIVE (Negative); PROTEIN,URINE NEGATIVE (Negative); UROBILINOGEN,URINE 0.2 (0.2-1.0)
[2024-11-15 06:16] VITALS: BP 151/100; PULSE 80
== END 2024-11-15 05:50 | disposition home or self-care (01) ==
LOC: JD.ED 02:51
DX: R10.84 Generalized abdominal pain (principal); I10 Essential (primary) hypertension; K21.9 Gastro-esophageal reflux disease without esophagitis; Z79.899 Other long term (current) drug therapy; Z79.82 Long term (current) use of aspirin; Z91.013 Allergy to seafood
CPT/HCPCS: 36415; 74177; 80053; 81003; 83690; 85025; 93005; 96361; 96374; 99284; J1885; J7030; Q9967; 93010

== ENCOUNTER 2025-03-28 01:22 | Emergency (ER) | payer BC ==
[2025-03-28] MEDS ORDERED: diphenhydrAMINE 50 MG/ML SDV ONE (01:23)
[2025-03-28] MEDS ORDERED: methylPREDNISolone Sodium Succinate 125 MG/2 ML SDV ONE (01:24)
[2025-03-28] MEDS: diphenhydrAMINE 50 MG/ML SDV IVPUSH ONE (01:27)
[2025-03-28] MEDS: methylPREDNISolone Sodium Succinate 125 MG/2 ML SDV IVPUSH ONE (01:28)
[2025-03-28] MEDS: Sodium Chloride 0.9% 10 ML Syringe FLUSH PRN (01:30)
[2025-03-28 06:44] VITALS: BP 136/87; PULSE 97
== END 2025-03-28 06:42 | disposition home or self-care (01) ==
LOC: JD.ED 01:22
DX: T78.2XXA Anaphylactic shock, unspecified, initial encounter (principal); I10 Essential (primary) hypertension; K21.9 Gastro-esophageal reflux disease without esophagitis; Z79.82 Long term (current) use of aspirin; Z79.899 Other long term (current) drug therapy
CPT/HCPCS: 96374; 96375; 99283-25; 99284; J1200; J1308; J2919

== ENCOUNTER 2025-04-06 22:44 | Inpatient (IN) | payer BC ==
[2025-04-06] MEDS: methylPREDNISolone Sodium Succinate 125 MG/2 ML SDV IVPUSH ONE (22:44)
[2025-04-06] MEDS ORDERED: methylPREDNISolone Sodium Succinate 125 MG/2 ML SDV ONE (22:47)
[2025-04-06] MEDS ORDERED: diphenhydrAMINE 50 MG/ML SDV ONE (22:47)
[2025-04-06] MEDS: Albuterol 0.083% 2.5 MG/3 ML Neb Soln NEB ONE (22:54)
[2025-04-06] MEDS: Budesonide 0.5 MG/2 ML Neb Susp NEB ONE (22:55)
[2025-04-06] MEDS: diphenhydrAMINE 50 MG/ML SDV IVPUSH ONE (23:00)
[2025-04-06] MEDS: Dexamethasone 4 MG/ML 5 ML MDV INH ONE ×3 (23:00)
[2025-04-06] MEDS: Magnesium Sulfate 2 GM/50 mL 2 GM in Premix Bag 1 BAG IV ONE (23:00)
[2025-04-06] MEDS: EPINEPHrine 1 MG/ML SDV IM ONE (23:00)
[2025-04-06] MEDS ORDERED: Dexamethasone 4 MG/ML SDV ONE (23:01)
[2025-04-06] MEDS ORDERED: Dexamethasone 10 MG/ML SDV ONE (23:02)
[2025-04-06] MEDS ORDERED: EPINEPHrine 1 MG/ML SDV ONE (23:06)
[2025-04-06] MEDS ORDERED: EPINEPHrine in 0.9 %/Sod Chlor 250 ML ONE (23:07)
[2025-04-06] MEDS: EPINEPHrine in 0.9 %/Sod Chlor 250 ML IV SCH (23:10)
[2025-04-06] MEDS: Albuterol 0.083% 2.5 MG/3 ML Neb Soln ONE (23:23)
[2025-04-06 23:31] LABS: BASOPHILS ABSOLUTE AUTO 0.1 K/mm3 (0.0-0.2); BASOPHILS PERCENT AUTO 0.7 % (0.0-1.0); EOSINOPHILS ABSOLUTE AUTO 0.2 K/mm3 (0.0-0.4); EOSINOPHILS PERCENT AUTO 2.2 % (0.0-6.0); IMMATURE GRAN ABSOLUTE AUTO 0.07 K/mm3 (0.00-0.05); IMMATURE GRAN PERCENT AUTO 0.8 % (0.0-0.4); LYMPHOCYTES ABSOLUTE AUTO 3.0 K/mm3 (1.0-4.8); LYMPHOCYTES PERCENT AUTO 33.0 % (24.0-44.0); MEAN PLATELET VOLUME 9.6 fl (9.4-12.4); MONOCYTES ABSOLUTE AUTO 1.1 K/mm3 (0.0-0.8); MONOCYTES PERCENT AUTO 12.4 % (0.0-8.0); NEUTROPHILS ABSOLUTE AUTO 4.7 K/mm3 (1.8-7.7); NEUTROPHILS PERCENT AUTO 50.9 % (41.0-71.0); NRBC ABSOLUTE 0.00 (0.00-0.02); NRBC PERCENT 0.0 % (0.0-0.2); PLATELET COUNT,PLT 256 K/mm3 (150-400); RED BLOOD CELL COUNT 4.60 M/mm3 (4.52-5.90); WHITE BLOOD CELL COUNT,WBC 9.14 K/mm3 (3.9-11.3)
[2025-04-06 23:34] LABS: BASE EXCESS ARTERIAL -3.7 (-2-2.0); BICARBONATE,ARTERIAL 19.5 meq/L (22.0-26.0); O2 SATURATION ARTERIAL 100.0 % (96.0-97.0); PCO2 ARTERIAL 30.0 mmHg (35.0-45.0); PO2 ARTERIAL 298.0 mmHg (80.0-100.0)
[2025-04-06 23:50] LABS: A/G RATIO 1.2 (1-2); ALANINE AMINOTRANSFERASE,ALT 46 U/L (16-63); ASPARTATE AMNIOTRANSFERASE,AST 41 U/L (15-37); BILIRUBIN TOTAL 0.4 mg/dL (0.2-1.0); BLOOD UREA NITROGEN,BUN 15 mg/dL (7-18); CARBON DIOXIDE,CO2 23 mEq/L (21-32); CHLORIDE,CL 102 mEq/L (98-107); CREATININE 1.0 mg/dL (0.7-1.3); ESTIMATED GFR 90 mL/min (>60); GLUCOSE RANDOM 128 mg/dL (70-99); PROTEIN TOTAL,TP 7.6 g/dl (6.4-8.2); SODIUM,NA 137 mEq/L (136-145); TROPONIN I HIGH SENSITIVITY 7 pg/mL (<=76)
[2025-04-06 23:55] LABS: POTASSIUM,K 4.5 mEq/L (3.5-5.1)
[2025-04-07] MEDS: Albuterol 0.083% 2.5 MG/3 ML Neb Soln ONE (00:48)
[2025-04-07] MEDS ORDERED: Albuterol 0.083% 2.5 MG/3 ML Neb Soln NEB PRN (01:04)
[2025-04-07] MEDS: EPINEPHrine in 0.9 %/Sod Chlor 250 ML IV SCH (01:45)
[2025-04-07 04:13] LABS: BASOPHILS ABSOLUTE AUTO 0.0 K/mm3 (0.0-0.2); BASOPHILS PERCENT AUTO 0.2 % (0.0-1.0); EOSINOPHILS ABSOLUTE AUTO 0.0 K/mm3 (0.0-0.4); EOSINOPHILS PERCENT AUTO 0.0 % (0.0-6.0); IMMATURE GRAN ABSOLUTE AUTO 0.18 K/mm3 (0.00-0.05); IMMATURE GRAN PERCENT AUTO 1.3 % (0.0-0.4); LYMPHOCYTES ABSOLUTE AUTO 0.7 K/mm3 (1.0-4.8); LYMPHOCYTES PERCENT AUTO 4.6 % (24.0-44.0); MEAN PLATELET VOLUME 9.6 fl (9.4-12.4); MONOCYTES ABSOLUTE AUTO 0.1 K/mm3 (0.0-0.8); MONOCYTES PERCENT AUTO 0.5 % (0.0-8.0); NEUTROPHILS ABSOLUTE AUTO 13.3 K/mm3 (1.8-7.7); NEUTROPHILS PERCENT AUTO 93.4 % (41.0-71.0); NRBC ABSOLUTE 0.00 (0.00-0.02); NRBC PERCENT 0.0 % (0.0-0.2); PLATELET COUNT,PLT 261 K/mm3 (150-400); RED BLOOD CELL COUNT 4.20 M/mm3 (4.52-5.90); WHITE BLOOD CELL COUNT,WBC 14.27 K/mm3 (3.9-11.3)
[2025-04-07 04:37] LABS: A/G RATIO 1.2 (1-2); ALANINE AMINOTRANSFERASE,ALT 43.0 U/L (16-63); ASPARTATE AMNIOTRANSFERASE,AST 32.0 U/L (15-37); BILIRUBIN TOTAL 0.4 mg/dL (0.2-1.0); BLOOD UREA NITROGEN,BUN 19.0 mg/dL (7-18); CARBON DIOXIDE,CO2 16.0 mEq/L (21-32); CHLORIDE,CL 103.0 mEq/L (98-107); CREATININE 1.5 mg/dL (0.7-1.3); EST CRCL DRUG DOSING (CG) 51.39 mL/min; ESTIMATED GFR 55.0 mL/min (>60); GLUCOSE RANDOM 397.0 mg/dL (70-99); POTASSIUM,K 3.1 mEq/L (3.5-5.1); PROTEIN TOTAL,TP 7.0 g/dl (6.4-8.2); SODIUM,NA 140.0 mEq/L (136-145)
[2025-04-07] MEDS: Potassium Chloride 20 MEQ Tab.ER PO ONE (08:16)
[2025-04-07 12:56] VITALS: BP 147/88; PULSE 100
[2025-04-09 16:42] LABS: TRYPTASE 8.6 ug/L (<=10.9)
== END 2025-04-07 11:55 | disposition home or self-care (01) | DRG 811 ==
LOC: JD.ED 22:44 → JD.ICU 04-07 00:17
PROVIDERS: ADMIT Family Medicine; ATTEND Family Medicine
PROC: 4A033R1 Measurement of Arterial Saturation, Peripheral, Percutaneous Approach (ICD-10-PCS; principal; 2025-04-07)
PROC: 5A09357 Assistance with Respiratory Ventilation, Less than 24 Consecutive Hours, Continuous Positive Airway Pressure (ICD-10-PCS; 2025-04-07)
DX: T78.2XXA Anaphylactic shock, unspecified, initial encounter (principal); J96.01 Acute respiratory failure with hypoxia; H54.7 Unspecified visual loss; I10 Essential (primary) hypertension; K21.9 Gastro-esophageal reflux disease without esophagitis; M10.9 Gout, unspecified; F41.9 Anxiety disorder, unspecified; E03.9 Hypothyroidism, unspecified; E78.00 Pure hypercholesterolemia, unspecified; Z79.899 Other long term (current) drug therapy; Z79.2 Long term (current) use of antibiotics; Z79.82 Long term (current) use of aspirin; Z79.51 Long term (current) use of inhaled steroids; Z87.81 Personal history of (healed) traumatic fracture; Z98.890 Other specified postprocedural states
CPT/HCPCS: 36415; 36600; 71045; 71045-26; 80053; 82803; 83520; 83880; 84484; 85025; 85379; 85652; 86140; 86160; 93005; 94640; 94660; A9270-GY; J0169; J1100; J1200; J1308; J2919; J3475; J3490; J7030

== ENCOUNTER 2025-05-18 07:04 | Day surgery (SDC) | payer BC ==
[2025-05-18] MEDS ORDERED: Sodium Chloride 0.9% 10 ML Syringe FLUSH PRN (07:08)
[2025-05-18] MEDS ORDERED: Lactated Ringers 1,000 ML IV SCH (07:15)
[2025-05-18] MEDS: Lactated Ringers 1,000 ML IV SCH (07:20)
[2025-05-18] MEDS ORDERED: Propofol 200 MG/20 ML SDV ONE (07:34)
[2025-05-18] MEDS ORDERED: Sodium Chloride 0.9% 10 ML Syringe FLUSH SCH (09:00)
[2025-05-18 09:08] VITALS: BP 142/102; PULSE 76
== END 2025-05-18 08:50 | disposition home or self-care (01) ==
LOC: JD.SDS 07:04
PROVIDERS: ATTEND Surgery
DX: K31.89 Other diseases of stomach and duodenum (principal); E03.9 Hypothyroidism, unspecified; K21.9 Gastro-esophageal reflux disease without esophagitis; I10 Essential (primary) hypertension; J45.909 Unspecified asthma, uncomplicated; E78.00 Pure hypercholesterolemia, unspecified; F41.9 Anxiety disorder, unspecified; F32.A Depression, unspecified; Z79.82 Long term (current) use of aspirin; Z79.890 Hormone replacement therapy; Z79.899 Other long term (current) drug therapy
CPT/HCPCS: 43239; C9777; J2003; J2704; J7120